=== PATIENT | female | born 1980 | race Hispanic/Latino ===

== ENCOUNTER → 2019-05-06 | Day surgery (SDC) | payer OTHER ==
[2019-05-04 14:17] LABS: BASOPHILS % 0.5 % (0.0-1.0); EOSINOPHILS # (AUTO) 0.1 (0.0-0.4); EOSINOPHILS % 1.8 % (0.0-6.0); HEMATOCRIT 39.1 % (34.2-44.1); HEMOGLOBIN 13.2 g/dL (12.0-16.0); LYMPHOCYTES # (AUTO) 1.3 (1.0-3.2); LYMPHOCYTES % 20.9 % (18.0-39.1); MEAN CORPUSCULAR HEMOGLOBIN 33.2 pg (28-32); MEAN CORPUSCULAR HGB CONC 33.8 g/dL (31-35); MEAN CORPUSCULAR VOLUME 98.5 fL (81-99); MONOCYTES # (AUTO) 0.4 (0.2-0.8); NEUTROPHILS # (AUTO) 4.4 (2.1-6.9); NEUTROPHILS % 70.6 % (38.7-80.0); PLATELET COUNT 295 x10e3/uL (140-360); RED BLOOD COUNT 3.97 x10e6/uL (3.6-5.1); RED CELL DISTRIBUTION WIDTH 12.3 % (11.7-14.4)
[~2019-05-06] MED LIST: BUPIVACAINE 0.5%/EPI 30 ML SDV INJ ONE; DEXAMETHASONE SOD PHOS INJ 4 MG/ML VIAL ONE; FENTANYL CITRATE/PF 100MCG/2 ML INJ ONE; GLYCOPYRROLATE INJ 0.2 MG/ML VIAL ONE; KETOROLAC TROMETHAMINE 30 MG/ML VIAL ONE; LIDOCAINE HCL 2% LOCAL INJ 5 ML SDV VIAL INJ ONE; MIDAZOLAM HCL 2 MG/2 ML VIAL ONE; NEOSTIGMINE 1 MG/ML 10ML VIAL ONE; ONDANSETRON HCL INJ 2MG/ML 2ML 2 MG/ML VIAL ONE; PROPOFOL IV EMULSION 10 MG/ML 20 ML VIAL ONE; ROCURONIUM BROMIDE 10 MG/ML 5ML VIAL ONE; SEVOFLURANE INHAL SOLN 250 ML PEN BTL ONE
[2019-05-06 14:20] VITALS: BP 118/81
--- NOTE | 2019-05-06 21:31 | Operative Report ---
DATE OF PROCEDURE: 05/06/2019 SURGEON: Xavier King MD PREOPERATIVE DIAGNOSIS: Desires elective sterilization. POSTOPERATIVE DIAGNOSIS: Desires elective sterilization. TITLE OF PROCEDURE: Bilateral tubal occlusion with cautery via laparoscopy. ANESTHESIA: General with Dr. Gamboa. INDICATION FOR OPERATION: The patient is a 39-year-old 3, para 3 with last menstrual period on May 04, 2019, who presents requesting elective sterilization. The risks, benefits, permanence, and failure rate 1% were explained in detail to the patient. Understanding this, she chooses tubal ligation for permanent contraception. She is therefore taken to the operating room at this time. FINDINGS OF SURGERY: There was normal uterus, tubes, and ovaries. There was no adhesions from her previous renal donation surgery. DESCRIPTION OF PROCEDURE: The patient was taken to the operating room and placed on the table in a supine position. General anesthesia was administered. The patient was placed in the lithotomy position. The perineum was prepared and draped in the usual sterile manner as was the abdomen. The bladder was drained by in and out catheterization. Then, a sponge stick was placed into the vagina after pelvic exam revealed a four-week size uterus with no adnexal masses. The sponge stick was attached to the drape using an Allis clamp. At this point, the addressing machine operator changed gloves. A small incision was made just inferior to the umbilicus in the midline. The Veress needle was inserted through the incision into the peritoneal cavity. A pneumoperitoneum was created by insufflation of 4 L of carbon dioxide gas and a filling pressure of 8-10 mmHg. The Veress needle was removed and the trocar was inserted through the incision into the peritoneal cavity. With a confirmation of the peritoneal cavity being entered, a 2nd trocar was placed through a midline suprapubic incision under direct visualization by laparoscopy. The trocar was removed and a probe was placed. The contents of the abdomen and pelvis were visualized with the findings of no adhesions from her previous renal surgery; normal uterus, tubes, and ovaries. Attention was turned to the right tube, it was grasped in the mid ampullary portion, traced to fimbriated end for positive identification. The mid ampullary portion of the tube was then occluded using the LigaSure instrument. Cautery was applied in three spots until there was no evidence of resistance in the tissue and the tissue was completely desiccated and it was apparent that the tube was completely occluded and attention was then turned to the left tube. It was grasped in the mid ampullary portion, traced to the fimbriated end for positive identification. The mid ampullary portion of the tube was then occluded using the LigaSure instrument. The tube was cauterized in three spots. Cautery was continued until it was apparent there was no resistance to the tissue. It was apparent that the left tube was completely occluded and at this point, the procedure was deemed terminated. We irrigated the area with saline, suctioned it out and then all the air and instruments were removed from the abdomen and all gas as well. The skin incisions were closed with interrupted inverted stitches of 4-0 Monocryl suture. The vaginal sponge was removed from the vagina. There were no complications noted. Estimated blood loss was 5 mL. The patient tolerated the procedure well, and was transferred from operating room to the recovery room in stable condition. MD SONYA Melo/RAULITO /[id number]
== END | disposition home or self-care (01) ==
LOC: OR 09:48
PROVIDERS: ATTEND Obstetrics & Gynecology
DX: Z30.2 Encounter for sterilization (principal); Z90.5 Acquired absence of kidney; Z01.812 Encounter for preprocedural laboratory examination
CPT/HCPCS: 36415; 58670; 84702; 85025; J1100; J1885; J2001; J2250; J2405; J2704; J2710; J3010